=== PATIENT | female | born 1945 | race Caucasian/White ===

== ENCOUNTER 2023-01-08 22:34 | Emergency (ER) | payer OTHER ==
[2023-01-09] MEDS ORDERED: TETANUS & DIPHTHERIA TOX,ADULT 0.5 ML VIAL ONE (00:11)
[2023-01-09] MEDS ORDERED: LIDOCAINE 1% MPF 5 ML VIAL ONE ×2 (00:13→00:24)
--- NOTE | 2023-01-09 01:11 | ER ---
Nurse's Notes [facility] Name: Milly Snow Age: 77 yrs Sex: Female : 1945 Arrival Date: 01/08/2023 Time: 22:34 Bed 9 Private MD: Diagnosis: Laceration without foreign body of left hand, initial encounter Presentation: 01/08 22:52 Chief complaint: Patient states: left hand pain of 3 to 2nd and 5th digits. Patient pf1 stated fell off the 2nd or 3rd step of the RV while carrying blankets and pillows, fell onto her right side on the ground and while trying to break her fall, grabbed onto something sharp that cut her fingers,onset 1 hour ago. Patient has lacerations to 2nd and 5th digit. Coronavirus screen: Vaccine status: Patient reports being unvaccinated. Client denies travel out of the [place] in the last 14 days. At this time, the client does not indicate any symptoms associated with coronavirus-19. Ebola Screen: Patient negative for fever greater than or equal to 101.5 degrees Fahrenheit, and additional compatible Ebola Virus Disease symptoms. Initial Sepsis Screen: Does the patient meet any 2 criteria? No. Patient's initial sepsis screen is negative. Does the patient have a suspected source of infection? No. Patient's initial sepsis screen is negative. Risk Assessment: Do you want to hurt yourself or someone else? Patient reports no desire to harm self or others. 22:52 Method Of Arrival: Ambulatory pf1 22:52 Acuity: BEN 4 pf1 Historical: - Allergies: 23:03 No Known Allergies; pf1 - Home Meds: 23:03 Metformin Oral [Active]; pf1 - PMHx: 23:03 Diabetes mellitus; pf1 - PSHx: 23:03 Appendectomy; pf1 - Immunization history:: Adult Immunizations up to date, Client reports having NOT received the Covid vaccine. Last tetanus immunization: > 10 years ago Flu vaccine is not up to date. - Social history:: Smoking status: Patient denies any tobacco usage or history of. Patient/guardian denies using alcohol, street drugs. Screenin:45 [facility] ED Fall Risk Assessment (Adult) History of falling in the last 3 months, pf1 including since admission Yes- single mechanical fall (1 pt) Confusion or Disorientation No (0 pts) Intoxicated or Sedated No (0 pts) Impaired Gait No (0 pts) Mobility Assist Device Used No (0 pt) Altered Elimination No (0 pt) Score/Fall Risk Level 0 - 2 = Low Risk Oriented to surroundings, Maintained a safe environment, Educated pt \T\ family on fall prevention, incl call for assistance when getting out of bed, Assessed \T\ reinforced patient's understanding of fall precautions, Provided non-skid footwear, Hourly rounding (assess needs \T\ fall precautionary measures) done, Used ambulatory aids as needed (educated on \T\ assisted with), Used gait belt as appropriate. Abuse screen: Denies threats or abuse. Nutritional screening: No deficits noted. Tuberculosis screening: No symptoms or risk factors identified. Assessment: 23:45 General: Appears in no apparent distress. comfortable, well groomed, well developed, pf1 Behavior is calm, cooperative, appropriate for age, quiet. 23:45 Pain: Complains of pain in left hand Pain currently is 3 out of 10 on a pain scale. pf1 Neuro: No deficits noted. Level of Consciousness is awake, alert, obeys commands, Oriented to person, place, time, situation. Cardiovascular: No deficits noted. Capillary refill < 3 seconds Patient's skin is warm and dry. Respiratory: No deficits noted. Airway is patent Trachea midline Respiratory effort is even, unlabored, Respiratory pattern is regular, symmetrical. GI: No deficits noted. No signs and/or symptoms were reported involving the gastrointestinal system. : No deficits noted. No signs and/or symptoms were reported regarding the genitourinary system. EENT: No deficits noted. No signs and/or symptoms were reported regarding the EENT system. Derm: Parent/caregiver reports the patient having lacerations to 2nd and 5th digits of left hand. 01/09 00:45 Reassessment: Patient appears in no apparent distress at this time. Patient and/or pf1 family updated on plan of care and expected duration. Pain level reassessed. Patient is alert, oriented x 3, equal unlabored respirations, skin warm/dry/pink. Patient states symptoms have improved. Vital Signs: 01/08 22:52 BP 156 / 60; Pulse 64; Resp 16; Temp 98.6; Pulse Ox 97% ; Weight 56.7 kg; Height 5 ft. pf1 4 in. ; Pain 3/10; 01/09 01:00 BP 145 / 70; Pulse 67; Resp 18; Pulse Ox 98% on R/A; Pain 0/10; pf1 01/08 22:52 Body Mass Index 21.46 (56.70 kg, 162.56 cm) pf1 01/08 22:52 Pain Scale: Adult pf1 01/09 01:00 Pain Scale: Adult pf1 ED Course: 01/08 22:39 Patient arrived in ED. ja2 22:48 Charles Puckett PA is PHCP. cp 22:48 Ted Mathews MD is Attending Physician. cp 23:03 Triage completed. pf1 23:45 Patient has correct armband on for positive identification. Bed in low position. Call pf1 light in reach. 23:45 Arm band placed on left wrist. pf1 23:45 No provider procedures requiring assistance completed. pf1 01/09 00:30 Wound care: to laceration located on left hand was cleaned with Betadine, dressed with pf1 Kerlix, band aid, Patient tolerated well. 01:10 Dressings: Band aid x 2 left hand Kerlix X 1; left hand. pf1 01:30 Patient did not have IV access during this emergency room visit. pf1 Administered Medications: 00:09 Drug: Tetanus-Diphtheria Toxoid IM Adult 0.5 ml {Patient Intake Coordinator: [employer] Exp: cg 02/05/2024. Lot #: [id number]. } Route: IM; Site: right deltoid; 01:00 Follow up: Response: No adverse reaction; Marked relief of symptoms pf1 00:09 Drug: Lidocaine Infiltration (1 %) 10 ml {Note: administered by Charles puckett.} Volume: 20 cg ml; Route: Infiltration; 01:00 Follow up: Response: No adverse reaction; Marked relief of symptoms; Pain is decreased pf1 Medication: 01:30 Vaccine Information Statement (VIS) provided today. Questions and/or concerns pf1 addressed. VIS edition date: March 19, 2021. Outcome: 01:10 Discharge ordered by . cp 01:34 Discharged to home ambulatory, with family. pf1 01:34 Condition: improved 01:34 Discharge instructions given to patient, family, Instructed on discharge instructions, follow up and referral plans. Demonstrated understanding of instructions, follow-up care, medications, Prescriptions given X 1. 01:34 Patient left the ED. pf1 Signatures: Charles Puckett PA PA cp Garcia, Cindy, RN RN Catalina Echavarria Pamala, RN RN pf1
--- NOTE | 2023-01-09 01:11 | EDPHYS ---
Physician Documentation [facility] Name: Milly Snow Age: 77 yrs Sex: Female : 1945 Arrival Date: 01/08/2023 Time: 22:34 Bed 9 Private MD: ED Physician Ted Mathews HPI: 01/08 23:15 This 77 yrs old Female presents to ER via Ambulatory with complaints of Fall Injury, cp Finger Injury. 23:15 The patient or guardian reports injury, a laceration, irregular. The complaints affect cp the left hand. 23:15 Context: resulted from reaching out to grab side of trailer to prevent from falling. cp Onset: The symptoms/episode began/occurred just prior to arrival. Associated signs and symptoms: The patient has no apparent associated signs or symptoms. Historical: - Allergies: 23:03 No Known Allergies; pf1 - Home Meds: 23:03 Metformin Oral [Active]; pf1 - PMHx: 23:03 Diabetes mellitus; pf1 - PSHx: 23:03 Appendectomy; pf1 - Immunization history:: Adult Immunizations up to date, Client reports having NOT received the Covid vaccine. Last tetanus immunization: > 10 years ago Flu vaccine is not up to date. - Social history:: Smoking status: Patient denies any tobacco usage or history of. Patient/guardian denies using alcohol, street drugs. ROS: 23:20 Constitutional: Negative for body aches, chills, fever. cp 23:20 Neck: Negative for pain with movement, pain at rest, stiffness. 23:20 Cardiovascular: Negative for chest pain. 23:20 Respiratory: Negative for cough, shortness of breath, wheezing. 23:20 Abdomen/GI: Negative for abdominal pain, nausea, vomiting, and diarrhea. 23:20 Back: Negative for pain at rest, pain with movement. 23:20 Skin: Positive for laceration(s), of the left hand. 23:20 Neuro: Negative for altered mental status, headache, syncope, weakness. 23:20 All other systems are negative. Exam: 23:25 Constitutional: The patient appears in no acute distress, alert, awake, comfortable, cp well developed, well nourished. 23:25 Head/Face: Normocephalic, atraumatic. cp 23:25 Eyes: Periorbital structures: appear normal, Conjunctiva: normal, no exudate, no cp injection, Sclera: no appreciated abnormality, Lids and lashes: appear normal, bilaterally. 23:25 ENT: External ear(s): are unremarkable, Nose: is normal, Mouth: Lips: moist, Oral mucosa: moist, Posterior pharynx: is normal, airway is patent. 23:25 Neck: ROM/movement: is normal, is supple, without pain, no range of motions limitations. 23:25 Chest/axilla: Inspection: normal. 23:25 Cardiovascular: Rate: normal. 23:25 Respiratory: the patient does not display signs of respiratory distress, Respirations: normal. 23:25 Abdomen/GI: Exam negative for discomfort, distension, guarding, Inspection: abdomen appears normal. 23:25 Back: pain, is absent, ROM is normal. 23:25 Neuro: Orientation: to person, place \T\ time. Mentation: is normal. 23:25 Musculoskeletal/extremity: Extremities: grossly normal except: noted in the left hand: cp irregular laceration noted ulna side distal phalanx of left small finger with no mail damage and no signs of tendon injury. irregular laceration noted middle phalanx demarco side of left index finger with no signs of tendon damage. mild bleeding noted to lacerations. Vital Signs: 22:52 BP 156 / 60; Pulse 64; Resp 16; Temp 98.6; Pulse Ox 97% ; Weight 56.7 kg; Height 5 ft. pf1 4 in. ; Pain 3/10; 01/09 01:00 BP 145 / 70; Pulse 67; Resp 18; Pulse Ox 98% on R/A; Pain 0/10; pf1 01/08 22:52 Body Mass Index 21.46 (56.70 kg, 162.56 cm) pf1 01/08 22:52 Pain Scale: Adult pf1 01/09 01:00 Pain Scale: Adult pf1 Laceration: 01:10 Wound Repair of 2.5cm ( 1.0in ) subcutaneous laceration to demarco side middle phalanx cp left index finger. Irregularly shaped.. Skin/tissue flap noted.. Distal neuro/vascular/tendon intact. Anesthesia: Wound infiltrated with 2 mls of 1% lidocaine. Wound prep: Moderate cleansing by me, Wound irrigation by me. Skin closed with 5 5-0 Prolene using interrupted sutures and sterile technique. Dressed with Bacitracin. Patient tolerated well. 01:10 Wound Repair of 3cm ( 1.2in ) subcutaneous laceration to distal phalanx left fifth cp finger ulna side. Irregularly shaped.. Distal neuro/vascular/tendon intact. Anesthesia: Wound infiltrated with 3 mls of 1% lidocaine. Wound prep: Moderate cleansing by me, Wound irrigation by me. Skin closed with 7 5-0 Prolene using simple sutures and sterile technique. Dressed with Bacitracin. Patient tolerated well. MDM: 01/08 23:05 Patient medically screened. cp 01/09 00:00 Differential diagnosis: open fracture, simple laceration, nail injury. cp 01:10 Data reviewed: vital signs, nurses notes. cp 01:10 Counseling: I had a detailed discussion with the patient and/or guardian regarding: the cp historical points, exam findings, and any diagnostic results supporting the discharge/admit diagnosis, the need for outpatient follow up, a family practitioner, to return to the emergency department if symptoms worsen or persist or if there are any questions or concerns that arise at home. Response to treatment: the patient's symptoms have markedly improved after treatment. 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 Exp: cg 02/05/2024. Lot #: [id number]. } Route: IM; Site: right deltoid; 01:00 Follow up: Response: No adverse reaction; Marked relief of symptoms pf1 00:09 Drug: Lidocaine Infiltration (1 %) 10 ml {Note: administered by Charles puckett.} Volume: 20 cg ml; Route: Infiltration; 01:00 Follow up: Response: No adverse reaction; Marked relief of symptoms; Pain is decreased pf1 Disposition Summary: 01/09/23 01:10 Discharge Ordered Location: Home cp Problem: new cp Symptoms: have improved cp Condition: Stable cp Diagnosis - Laceration without foreign body of left hand, initial encounter cp Followup: cp - With: Private Physician - When: 10 - 14 days - Reason: Staple/Suture removal Discharge Instructions: - Discharge Summary Sheet cp - Laceration Care, Adult cp - Sutured Wound Care cp Forms: - Medication Reconciliation Form cp - Thank You Letter cp - Antibiotic Education cp - Prescription Opioid Use cp Prescriptions: - Cephalexin 500 mg Oral Capsule - take 1 capsule by ORAL route every 8 hours for 10 days; 30 capsule; Refills: 0, cp Product Selection Permitted Signatures: Charles Puckett PA PA cp Garcia, Cindy, RN RN cg Manuela Zapata RN RN pf1
[2023-01-09 01:42] VITALS: BP 156/60; TEMP 98.6; O2SAT 97
== END 2023-01-09 01:34 | disposition home or self-care (01) ==
LOC: ER 22:34
PROC: 0HQGXZZ Repair Left Hand Skin, External Approach (ICD-10-PCS; principal; 2023-01-09)
DX: S61.412A Laceration without foreign body of left hand, initial encounter (principal); Z23 Encounter for immunization; E11.9 Type 2 diabetes mellitus without complications
CPT/HCPCS: 90471; 90714; 99284; 12002; J2001